=== PATIENT | male | born 1960 | race Caucasian/White ===

== ENCOUNTER 2022-05-05 14:49 | Outpatient (CLI) | payer BC, SELFPAY ==
[2022-05-05 22:11] LABS: Albumin* 4.6 g/dL (3.3-5.0); Chloride* 102 mmol/L (96-114); Sodium* 137 mmol/L (135-149)
[2022-05-05 22:13] LABS: Creatinine* 0.8 mg/dL (0.5-1.5); Estimated Glomerular Filt Rate 101 ml/min
[2022-05-05 22:14] LABS: Alanine Aminotransferase* 55 U/L (4-50); Alkaline Phosphatase* 68 U/L (40-150); Aspartate Amino Transferase* 41 U/L (12-35); Bilirubin Total* 0.5 mg/dL (0.1-1.5); Blood Urea Nitrogen* 10 mg/dL (7-30); Carbon Dioxide* 29 mmol/L (20-32); Glucose* 94 mg/dL (60-115); Total Protein* 7.7 g/dL (6.0-8.3)
[2022-05-05 22:15] LABS: Calcium* 9.5 mg/dL (8.4-10.6)
[2022-05-05 22:18] LABS: Cholesterol* 168 mg/dL (90-199); HDL Cholesterol* 48 mg/dL (>=40); LDL Cholesterol Calculated 99 mg/dL (<100); Triglycerides* 105 mg/dL (40-149)
[2022-05-05 22:32] LABS: Vitamin D 25 Hydroxy* 34 ng/mL (30-80)
[2022-05-05 23:03] LABS: Hepatitis C Virus Antibody* Negative (Negative)
== END 2022-05-05 14:50 | disposition home or self-care (01) ==
PROVIDERS: PCP Family Medicine; Visit Provider Family Medicine
DX: I10 Essential (primary) hypertension (principal); G35 Multiple sclerosis; Z79.899 Other long term (current) drug therapy; Z11.59 Encounter for screening for other viral diseases; Z12.5 Encounter for screening for malignant neoplasm of prostate
CPT/HCPCS: 80053; 80061; 82306; 84153; 85027; 86803

== ENCOUNTER 2022-06-14 10:49 | Outpatient (CLI) | payer BC, SELFPAY ==
--- NOTE | 2022-06-14 11:00 | CRLHL7_ITS ---
For Patients: As a result of the Century Cures Act, medical imaging exams and procedure reports are released immediately into your electronic medical record. You may view this report before your referring provider. If you have questions, please contact your health care provider. INDICATION: Lung cancer screening. History of smoking. High risk patient with greater than 40 pack-year smoking history. TECHNIQUE: Low-dose lung cancer screening non-contrast CT chest. Dose reduction techniques were used. COMPARISON: None. FINDINGS: NODULES: 4 millimeter nodule adjacent to the fissure left upper lobe, . Numerous small nodules are present throughout the left lower lobe measuring up to 4 millimeters. Several 4 millimeter or less pulmonary nodules are also present within the right middle lobe. Numerous nodular densities within the right lower lobe are present, measuring up to 7.7 millimeters, series 3, image 90. LUNGS AND PLEURA: Biapical pleural parenchymal scarring. Paraseptal and centrilobular emphysema. MEDIASTINUM: No adenopathy. CORONARY ARTERY CALCIFICATION: Moderately severe. LIMITED UPPER ABDOMEN: Normal. MUSCULOSKELETAL: Chronic left medial clavicular fracture. Old right 11th rib fracture. IMPRESSION: Numerous bilateral pulmonary nodules measuring up to 7.7 millimeters. LUNG-RADS CATEGORY: 3: Probably benign. RADIOLOGIST RECOMMENDATION: Low-dose CT chest in 6 months. Please note that all CT scans at this facility use dose modulation, iterative reconstruction, and/or weight-based dosing when appropriate to reduce radiation dose to as low as reasonably achievable. Dictated by Dheeraj Mensah MD @ 06/14/2022 12:45:40 PM (Electronically Signed)
== END 2022-06-14 10:50 | disposition home or self-care (01) ==
LOC: CT 10:50
PROVIDERS: PCP Family Medicine; Visit Provider Family Medicine
DX: Z12.2 Encounter for screening for malignant neoplasm of respiratory organs (principal); R91.8 Other nonspecific abnormal finding of lung field
CPT/HCPCS: 71271

== ENCOUNTER 2022-12-13 12:49 | Outpatient (CLI) | payer BC, SELFPAY ==
--- NOTE | 2022-12-13 13:00 | CRLHL7_ITS ---
For Patients: As a result of the Century Cures Act, medical imaging exams and procedure reports are released immediately into your electronic medical record. You may view this report before your referring provider. If you have questions, please contact your health care provider. INDICATION: Lung cancer screening. History of smoking. High risk patient with greater than 40 pack-year smoking history. Tiny nodules were described on a prior CT June 14, 2022. TECHNIQUE: Low-dose lung cancer screening non-contrast CT chest. Dose reduction techniques were used. COMPARISON: June 24, 2022. FINDINGS: NODULES: 6 mm pulmonary nodule right lower lobe laterally previously 7 mm. Stable benign darryl fissural nodule left upper lobe, image 50 series 3 measuring up to 4 mm. One or 2 very tiny micro nodules left lower lobe smaller and less numerous than before. No new nodules. LUNGS AND PLEURA: Emphysematous type change. Minor basilar fibrosis. Minor apical fibrosis. MEDIASTINUM: Normal. CORONARY ARTERY CALCIFICATION: Present. LIMITED UPPER ABDOMEN: No splenomegaly. Normal adrenal glands. MUSCULOSKELETAL: Left clavicular fracture. IMPRESSION: Negative for lung cancer screening purposes. LUNG-RADS CATEGORY: 2: Benign. RADIOLOGIST RECOMMENDATION: Continue annual screening with low-dose CT chest in 12 months. Please note that all CT scans at this facility use dose modulation, iterative reconstruction, and/or weight-based dosing when appropriate to reduce radiation dose to as low as reasonably achievable. Dictated by Deandre Montalvo MD @ 12/13/2022 7:22:51 PM (Electronically Signed)
== END 2022-12-13 12:50 | disposition home or self-care (01) ==
LOC: CT 12:49
PROVIDERS: PCP Family Medicine; Visit Provider Family Medicine
DX: R91.8 Other nonspecific abnormal finding of lung field (principal); Z12.2 Encounter for screening for malignant neoplasm of respiratory organs
CPT/HCPCS: 71250

== ENCOUNTER 2023-03-12 13:41 | Outpatient (CLI) | payer BC, SELFPAY | END 2023-03-12 13:42 | disposition home or self-care (01) | LOC: US 13:41 | PROVIDERS: PCP Family Medicine; Visit Provider Family Medicine | DX: M79.662 Pain in left lower leg (principal); R20.0 Anesthesia of skin | CPT/HCPCS: 93924 ==

== ENCOUNTER 2023-08-13 07:32 | Outpatient (CLI) | payer BC, SELFPAY | END 2023-08-13 07:33 | disposition home or self-care (01) | PROVIDERS: PCP Family Medicine; Visit Provider Family Medicine | DX: E78.5 Hyperlipidemia, unspecified (principal); I10 Essential (primary) hypertension | CPT/HCPCS: 80053; 80061; 82043; 82570 ==

== ENCOUNTER 2023-08-30 09:52 | Outpatient (CLI) | payer BC, SELFPAY | END 2023-08-30 09:53 | disposition home or self-care (01) | LOC: NFLDREF 08-31 08:31 | PROVIDERS: PCP Family Medicine; Referring Provider Family Medicine; Visit Provider Family Medicine | DX: E87.1 Hypo-osmolality and hyponatremia (principal) | CPT/HCPCS: 80048 ==

== ENCOUNTER 2024-04-17 13:49 | Outpatient (CLI) | payer BC, SELFPAY ==
--- NOTE | 2024-04-17 14:00 | CRLHL7_ITS ---
For Patients: As a result of the Century Cures Act, medical imaging exams and procedure reports are released immediately into your electronic medical record. You may view this report before your referring provider. If you have questions, please contact your health care provider. DXA BONE MINERAL DENSITY STUDY Reason for exam: Osteopenia. Current height (in): 71. Weight (lb): 195. Menopause age: N/A. Ethnicity: White. 1. Have you had a previous hip or vertebral fracture? No. 2. Have you had any fractures during your adult life which did not result from significant trauma (e.g., auto accident)? No. 3. Did either of your parents have a hip fracture? No. 4. Do you smoke? No. 5. Have you ever taken Glucocorticoids? No. 6. Do you have rheumatoid arthritis? No. 7. Do you have secondary osteoporosis? No. 8. Do you drink 3 or more alcoholic drinks per day? Yes. 9. Are you being treated for osteoporosis? No. 10. Have you ever taken any of the following medications: Actonel, Evista, Fosamax, Miacalcin, Reclast, Boniva, Forteo, HRT (i.e., estrogen/hormone therapy), Protelos, Prolia, Vitamin D, Calcium, other ??? please specify. ANSWER: Yes, vitamin D. 11. Do you have any of the following medical conditions: Anorexia or bulimia, asthma or emphysema, end stage renal disease, hyperparathyroidism, any seizure disorders, cancer, inflammatory bowel diseases, hysterectomy, other ??? please specify. ANSWER: No. 12. What was your maximum height (inches)? 72. 13. Do you perform weight bearing exercise regularly? No. 14. Do you regularly consume dairy products? No. 15. Do you drink caffeinated beverages? Yes. TECHNIQUE: Bone mineral density study was performed using the [employer] Wi. FINDINGS: The results of the study expressed as bone mineral density (BMD) are as follows: Lumbar spine L1 to L4: BMD: 0.914 g/cm2. T-score: -1.6. Z-score: -0.9 Neck Left: BMD: 0.678 g/cm2. T-score: -1.9. Z-score: -0.9 Right: BMD: 0.655 g/cm2. T-score: -2.0. Z-score: -1.0 Total Left: BMD: 0.820 g/cm2. T-score: -1.4. Z-score: -0.9 Right: BMD: 0.837 g/cm2. T-score: -1.3. Z-score: -0.8 IMPRESSION: Osteopenia. *Comparison exams done prior to 10/2019 were performed on different unit, [place]en.. FRAX 10-year Fracture Risk Major Osteoporotic Fracture: 9.1% Hip Fracture: 2.1% Reported Risk Factors: [place] () Neck BMD=0.655, BMI=27.2, alcohol use. Dheeraj Mensah M.D. Diagnostic Radiologist [email or web address] CARROL/ana laura du/Dictated by: Dheeraj Mensah MD @ 04/18/2024 8:44:00 AM (Electronically Signed)
== END 2024-04-17 13:50 | disposition home or self-care (01) ==
LOC: RAD 13:50
PROVIDERS: PCP Family Medicine; Visit Provider Family Medicine
DX: M85.80 Other specified disorders of bone density and structure, unspecified site (principal); M85.89 Other specified disorders of bone density and structure, multiple sites
CPT/HCPCS: 77080

== ENCOUNTER 2024-10-27 07:51 | Outpatient (CLI) | payer BC, SELFPAY | END 2024-10-27 07:52 | disposition home or self-care (01) | LOC: NFLDREF 18:56 | PROVIDERS: PCP Family Medicine; Referring Provider Family Medicine; Visit Provider Family Medicine | DX: Z00.00 Encounter for general adult medical examination without abnormal findings (principal); E78.5 Hyperlipidemia, unspecified; I10 Essential (primary) hypertension; Z12.5 Encounter for screening for malignant neoplasm of prostate; Z13.21 Encounter for screening for nutritional disorder | CPT/HCPCS: 80053; 80061; 82306; G0103 ==

== ENCOUNTER 2024-10-30 10:12 | Outpatient (CLI) | payer BC, SELFPAY | END 2024-10-30 10:13 | disposition home or self-care (01) | LOC: FRMREF 10:12 | PROVIDERS: PCP Family Medicine; Visit Provider Family Medicine | DX: I10 Essential (primary) hypertension (principal); E87.1 Hypo-osmolality and hyponatremia; E78.5 Hyperlipidemia, unspecified | CPT/HCPCS: 82043; 82570 ==

== ENCOUNTER 2024-11-13 13:43 | Outpatient (CLI) | payer BC, SELFPAY ==
--- OUTSIDE RECORDS SUMMARY | 2022-06-22 05:01 | XMS_ITS | Continuity of Care Document ---
Author Organization [facility] Address [address] [address] [place] [address] Phone Care Team Providers Care Messenger Copy Name Role Phone Unavailable Unavailable Unavailable Allergies, Adverse Reactions, Alerts Substance Reaction Status Criticality hydrochlorothiazide HivesHives Active No Infor mation Medications Medication Instructions Dosage Effective Dates (start - stop) Status Comments albuterol sulfate HFA 90 mcg/actuation aerosol inhaler inhale 1 puff by INHALATION route every day as needed 1 puff - Active atorvastatin 20 mg tablet take 1 tablet by oral route every day 20 MG - Active cholecalciferol (vitamin D3) 50 mcg (2,000 unit) capsule take 1 by Oral route every day 1 - Active Prozac 10 mg capsule take 1 Capsule by oral route every day 10 MG - Active Advair HFA 45 mcg-21 mcg/actuation aerosol inhaler inhale 2 puff by inhalation route 2 times every day in the morning and evening 2.00 puff - Active fluticasone propionate 50 mcg/actuation nasal spray,suspension spray 2 spray by Intranasal route every day in each nostril 2 spray - Active lisinopril 30 mg tablet take 1 tablet by oral route every day 30 MG - Active tadalafil 20 mg tablet take 1 tablet by oral route every day 20 MG - Active Procedures Procedure Date Colonoscopy Flex; W/remov Les- 23 Colonoscopy Flex; W/bx 1/mx Level Iv-surg Path Gross/micro Advance Directives Directive Yes / No Effective Date File Name No Information Encounters Encounter Description Practice Location Reason(s) For Visit Diagnoses Date Provider Providers Copied on Encounter [facility], [address] [address], [place], [place], [id number], [place] tel:[phone] [facility] No Information 3 No Information Referring Provider: Stanley Metz MD, [address] [facility] [address], [place], [address] . tel:[phone] [facility], [address] [address], [place], [place], [id number], [place] tel:[phone] [facility] GI Symptoms or Concerns (chief complaint) Colorectal polypsDiverticul osis of colonEncounter for screening for malignant neoplasm of colonBenign neoplasm of transverse colonBenign neoplasm of cecumBenign neoplasm of ascending colonBenign neoplasm of ascending colonBenign neoplasm of cecum 3 Isaías Angel. [address] [facility] [place] [address], [place], [place], [id number], [place]. tel:[phone] [facility], [address] [address], [place], [place], [id number], [place] tel:[phone] [facility] No Information 2 Wes Arevalo. [address] [facility], [facility] [address], [place], [place], [id number], [place]. tel:[phone] Family History Family Member Type Diagnosis Age At Onset No Information Immunizations Vaccine Date Status Comments Influenza administered Note: [facility] bi-d irectional interface ; Source: Other Registry SARS-COV-2 (COVID-19) vaccin e, mRNA, spike protein, LNP, bivalent booster, preservative free, 30 mcg/0.3 mL dose, salvador-sucrose formulation administered Note: [facility] bi-d irectional interface ; Source: Other Registry SARS-COV-2 (COVID-19) vaccin e, mRNA, spike protein, LNP, preservative free, 30 mcg/0.3mL dose, salvador-sucrose formulation administered Note: [facility] C bi- directional interface ; Source: Other Registry Seasonal, quadrivalent, recombinant, injectable influenza vaccine, preservative free administered Note: [facility] bi-direct ional interface ; Source: Other Registry SARS-COV-2 (COVID-19) vaccin e, mRNA, spike protein, LNP, preservative free, 30 mcg/0.3mL dose administered Note: [facility] bi-direct ional interface ; Source: Other Registry SARS-COV-2 (COVID-19) vaccin e, mRNA, spike protein, LNP, preservative free, 30 mcg/0.3mL dose administered Note: [facility] bi-direct ional interface ; Source: Other Registry SARS-COV-2 (COVID-19) vaccin e, mRNA, spike protein, LNP, preservative free, 30 mcg/0.3mL dose administered Note: [facility] bi-direct ional interface ; Source: Other Registry Afluria Qd administered Note: [facility] bi-directional interface ; Source: Other Registry zoster vaccine recombinant administered N ote: [facility] bi-directional interface ; Source: Other Registry Influenza administered Note: [facility] bi-d irectional interface ; Source: Other Registry zoster vaccine recombinant administered N ote: [facility] bi-directional interface ; Source: Other Registry measles, mumps and rubella v irus vaccine administered Note: [facility] bi-direct ional interface ; Source: Other Registry Afluria Qd administered Note: [facility] bi-directional interface ; Source: Other Registry tetanus toxoid, reduced diphtheria toxoid, and acellular pertussis vaccine, adsorbed administered Note: [facility] b i-directional interface ; Source: Other Registry tetanus and diphtheria toxoi ds, adsorbed, preservative free, for adult use (5 Lf of tetanus toxoid and 2 Lf of diphtheria toxoid) administered Note: [facility] bi-direct ional interface ; Source: Other Registry Payers Payer name Insurance type Covered democrat ID Authorleandro nazario(s) [employer] [id number] Social History Type Description Quantity Date Captured Comments Sex Male Smoking Status No Information Chief Complaint And Reason For Visit No Information Reason For Referral Reason For Referral No Information History Of Present Illness Encounter Date Complaint History Of Prese nt Illness GI Symptoms or Concerns Functional Status Date Functional Assessmen t No Information Instructions Date Instruction Additional Infor mation Colon Cancer Prevention Related to Colorectal polyps Diverticulosis/Diverticulitis Re lated to Colorectal polyps Colon Polyps Related to Color ectal polyps Assessments Type Assessment Date No Information Patient Care Teams Name Effective Dates (start - stop) Status Members No Information
--- NOTE | 2024-11-13 14:00 | CRLHL7_ITS ---
For Patients: As a result of the Cures Act, medical imaging exams and procedure reports are released immediately into your electronic medical record. You may view this report before your referring provider. If you have questions, please contact your health care provider. INDICATION: Lung cancer screening. TECHNIQUE: Low-dose lung cancer screening non-contrast CT chest. Dose reduction techniques were used. COMPARISON: CT 12/13/2022 FINDINGS: NODULES: Scattered nodules appear unchanged measuring up to 6 millimeters in the right lower lobe. There are peripheral centrilobular small nodules probably infectious/inflammatory. LUNGS AND PLEURA: Emphysema. MEDIASTINUM: Normal. CORONARY ARTERY CALCIFICATION: Present. LIMITED UPPER ABDOMEN: Normal. MUSCULOSKELETAL: Unremarkable. Old left clavicular fracture. IMPRESSION: 1. Scattered pulmonary nodules measuring up to 6 millimeters unchanged. 2. Peripheral small centrilobular nodules also probably infectious/inflammatory. LUNG-RADS CATEGORY: 2: Benign. RADIOLOGIST RECOMMENDATION: Continue annual screening with low-dose CT chest in 12 months. Please note that all CT scans at this facility use dose modulation, iterative reconstruction, and/or weight-based dosing when appropriate to reduce radiation dose to as low as reasonably achievable. Dictated by Meredith Joseph MD @ 11/16/2024 10:20:49 AM (Electronically Signed)
--- OUTSIDE RECORDS SUMMARY | 2024-11-14 00:34 | XMS_ITS | Clinical Summary ---
Author Organization [facility] Address [address] [place] [address] Care Team Providers Care Manager Financial Planning Name Role Phone Unavailable Primary Care Provider Unavailabl e Source Comments Patient records contain information from all sites at [facility]. For routine questions regarding patient records, call [phone] during business hours, M-F 8:00 AM - 5:00 PM Central Time. Record requests for emergency care only can be directed to [phone] at any time.[facility] Allergies Active Allergy Reactions Criticality Noted Date Comments Triamterene-Hydrochlorothiazid Rash 04/09 Medications cholecalcifero l (VITAMIN D3) 50 mcg (2,000 Unit) capsule 8 Active atorvastatin (LIPITOR) 40 mg tablet 3 Active FLUoxetine (PROzac) 20 mg capsule Take 20 mg by mouth every day* 3 Active lisinopriL (PRINIVIL,ZEST RIL) 30 mg tablet TAKE 1 TABLET (30MG) BY MOUTH EVERY DAY* 3 Active pu-tvi-lxchy-K 6-scignsv-meve in (Centrum Silver Men) [phone] mcg tablet 0 Active Nicotrol 10 mg inhaler 1 inhaler inhaled every 2-4 hours As Needed for nicotine cravings* 3 Active tadalafiL (CIALIS) 20 mg tablet 20 mg orally every day As Needed for sexual activity; administer approximately 30min before sexual activity; do not use more than 1 dose per 24hrs* 3 Active aspirin 81 mg chewable tablet Chew 81 mg daily. Ac tive tamsulosin (FLOMAX) 0.4 mg 24 hr capsule Take 0.4 mg by mouth daily. Active FLUoxetine (PROzac) 40 mg capsule Take 40 mg by mouth daily. 5 Active Active Problems No known active problems Encounters Date Type Department Care Team Description 09/16/2024 11:30 AM CDT Office Visit Division of Vascular and Endovascular Surgery in [place], [place] [address] [place] [phone] Nagi Huffman M.D. 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 Peripheral Arterial Disease; Atherosclerosis Arteriosclerosis Obliterans Lower Extremity Discharge Disposition: Home or Self Care 09/10/2024 4:15 PM CDT Clinical Communication Virtual Review in [place], [place] [address] [place] [address] Pre-visit Intake from Last 3 Months Social History Tobacco Use Types Packs/Day Years Used Date Smoking Tobacco: Former Cigarettes 0 12/26/1974 - 02/25/2017 Passive Smoke Exposure: Past Smokeless Tobacco: Never Tobacco Cessation:Counseling Given: Not Answered Alcohol Use Standard Drinks/Week Comments Yes 20 (1 standard drink = 0.6 oz pu re alcohol) [facility] Utilities Answer Date Recorded In the past 12 months has [employer], [employer], or water [employer] threatened to shut off services in your home? No 09/12/2024 Overall Financial Resource Strain (CARDIA) Answe r Date Recorded How hard is it for you to pa y for the very basics like food, housing, medical care, and heating? Not hard at all 04/06/2023 Exercise Vital Sign Answer Date Recorde d On average, how many days pe r week do you engage in moderate to strenuous exercise (like a brisk walk)? 1 day 09/12/2024 On average, how many minutes do you engage in exercise at this level? 30 min 09/12/2024 Hunger Vital Sign Answer Date Recorded Within the past 12 months, y ou worried that your food would run out before you got the money to buy more. Never true 09/13/19 25 Within the past 12 months, t he food you bought just didn't last and you didn't have money to get more. Never true 09/12/2024 PRAPARE - Transportation Answer Date Re corded In the past 12 months, has l ack of transportation kept you from medical appointments or from getting medications? No 08/26 In the past 12 months, has l ack of transportation kept you from meetings, work, or from getting things needed for daily living? No 09/12/2024 Nutrition Answer Date Recorded On average, how many serving s of fruits and vegetables do you eat per day (serving size is equal to 1 cup or approximately the size of a tennis ball)? 3-5 09/12/2024 Dental Answer Date Recorded Dental: Regular Dentist Yes 04/06/20 Employment Answer Date Recorded Employment status Retired 09/12/2024 Housing Stability Answer Date Recorded What is your living situation today? I have a [facility] place to live 09/12/2024 Sex and Gender Information Value Date Recorded Sex Assigned at Male 04/07/2023 1:25 PM EVS TECH Legal Sex Male 9:07 PM EVS TECH Gender Identity Male 04/07/2023 1:25 PM EVS TECH Sexual Orientation Straight 04/07/2023 1: 25 PM EVS TECH Last Filed Vital Signs Vital Sign Reading Time Taken Comments Blood Pressure 124/78 09/16/2024 11:20 AM CDT Pulse 73 09/16/2024 11:20 AM CDT Temperature 36.5 C (97.7 F) 08/27/2023 1:22 PM CDT Respiratory Rate 14 08/27/2023 3:00 PM CDT Oxygen Saturation 99% 08/27/2023 3:00 PM CDT Inhaled Oxygen Concentration - - Weight 89.6 kg (197 lb 8.5 oz) 09/16/2024 11:15 AM CDT Height 180 cm (5' 10.87) 09/16/2024 11:15 AM CD T Body Mass Index 27.65 09/16/2024 11:15 AM CDT Plan of Treatment Health Maintenance Due Date Last Done Comments CT Colonography 1961 Cologuard 1961 Colonoscopy 1961 Colorectal Cancer Screening 1961 FIT 1961 Fasting Glucose for Diabetes Screening 1961 Hepatitis C Screening 1961 Lipid (Cholesterol) Screening 1961 Potassium Level 1961 Sodium Level 1961 Pneumococcal vaccine (50+ years) (1 of 1 - PCV) 12/29/2011 Creatinine Level (Kidney Function Test) 04/11/2024 04/11/2023 Depression Screening (Annual PHQ-2) 05/28/2024 DTaP,Tdap,and Td Vaccines (3 - Td or Tdap) 08/12/2033 08/13/2023, 09/07/2014, 08/29/2004 Zoster Vaccines Completed 06/03/2019, 03/07/2019 COVID-19 Vaccine Completed 03/14/2024, , 03/05/2022, Additional history exists Influenza Vaccine Completed 03/14/2024, , 03/05/2022, Additional history exists IPV Vaccines Aged Out No longer eligi ble based on patient's age to complete this topic Medical Devices Implanted Type Area Training Specialist Device Identifier Shelf Expiration Date Model / Serial / Lot Misc Other Misc Other N/A: Mouth Description:Dental snap on- lower dentures- placed 2019 [employer] 018 [id number] - [id number] - [id number] Implanted:Qty : 1 on 06/13/2023 by Nagi Huffman M.D. at [facility] [employer] [place] 02/03/2026 [id number] / [id number] / Stnt Vbx Lg Bln [id number] - [id number] - [id number] Implanted:Qty : 1 on 06/13/2023 by Nagi Huffman M.D. at [facility] [employer] [place] 02/16/2026 [id number] / [id number] / Stnt Vbx Lg Bln [id number] - [id number] - [id number] Implanted:Qty : 1 on 06/13/2023 by Nagi Huffman M.D. at [facility] [employer] [place] 11/03/2025 [id number] / [id number] / Stnt Vbx Lg Bln [id number] - [id number] - [id number] Implanted:Qty : 1 on 06/13/2023 by Nagi Huffman M.D. at [facility] [employer] [place] 01/28/2026 [id number] / [id number] / Stnt Elv De Otw [id number] - [id number] Implanted:Qty : 1 on 08/27/2023 by Nagi Huffman M.D. at [facility] [employer] 01/04/2025 [id number] / [id number] Procedures Procedure Name Priority Date/Time Associated Diagnosis Comments LOWER EXTREMITY ARTERIAL (RICHARD) - EXERCISE (CLAUDICATION) Routine 09/16/2024 10:17 AM CDT Peripheral Arterial Disease Atherosclerosis Arteriosclerosis Obliterans Lower Extremity CREATININE WITH EGFR, S/P Routine 04/11/2023 10:42 AM EVS TECH Hypertension Essential Primary from Last 3 Months or Most Recently Relevant to Health Maintenance Results * Lower Extremity Arterial (RICHARD) - Exercise (Claudication) (09/16/2024 10:17 AM CDT) Anatomical Region Laterality Modality Other 09/16/2024 8:51 AM CDT Narrative 09/16/2024 10:36 AM CDT Right: Doppler Waveforms: Abnormal signals starting at or above the superficial femoral level. Resting Index: RICHARD (PT)- 0.70 RICHARD (DP)- 0.59 TBI- 0.46 Post-exercise RICHARD: 0.29 Post-Exercise CF Doppler: Abnormal. Left: Doppler Waveforms: Normal at all levels evaluated. Resting Index: RICHARD (PT)- 0.90 RICHARD (DP)- 0.84 TBI- 0.70 Post-exercise RICHARD: 0.41 Post-Exercise CF Doppler: Abnormal. General: Patient exercised at speed of 2.0 mph (10% grade) for 3'24 (189 yards). Standard protocol: 2.0 mph (10% grade) for 5 minutes (283 yards). Onset of symptoms at 1'45 (93 yards). Exercise terminated due to lower extremity symptoms. Conclusions: Right- moderate aortoiliac obstruction. Left- mild-moderate aortoiliac obstruction. EKG- negative for cardiac ischemia with exercise. Left-sided disease severity may have worsened slightly since the study of 09/11/2023. Procedure Note Eric Norris M.D. - 09/16/2024 Right: Doppler Waveforms: Abnormal signals starting at or above thesuperficial femoral level. Resting Index: RICHARD (PT)- 0.70 RICHARD(DP)- 0.59 TBI- 0.46 Post- exercise RICHARD: 0.29 Post-ExerciseCF Doppler: Abnormal. Left: Doppler Waveforms: Normal at all levels evaluated. RestingIndex: RICHARD (PT)- 0.90 RICHARD (DP)- 0.84 TBI- 0.70Post-exercise RICHARD: 0.41 Post-Exercise CF Doppler: Abnormal. General: Patient exercised at speed of 2.0 mph (10% grade) for 3'24 (189yards). Standard protocol: 2.0 mph (10% grade) for 5 minutes (283yards). Onset of symptoms at 1'45 (93 yards). Exercise terminated dueto lower extremity symptoms. Conclusions: Right- moderate aortoiliac obstruction. Left- mild- moderateaortoiliac obstruction. EKG- negative for cardiac ischemia with exercise.Left-sided disease severity may have worsened slightly since the study of09/11/2023. us Nagi Huffman M.D. CV VASCULAR PROCEDURES Fi nal Result * Creatinine with Estimated GFR (04/11/2023 10:42 AM EVS TECH) Creatinine 0.80 0.74 - 1.35 mg/dL 04/11/2023 12:34 PM EVS TECH DTL Estimated GFR (eGFR) >90 >=60 mL/min/BSA 04/11/2023 12:34 PM EVS TECH DTL Comment: Estimated GFR calculated using the 2020 CKD_EPI creatinine equation. Blood (Blood, Venous) 04/11/2023 10:42 AM EVS TECH 04/11/2023 11:36 AM EVS TECH Mario Reeves M.D. LAB BLOOD ADD-ON Final R esult [facility] [place] [address] [place] [address], [place] DTL [facility] [address] [place] [address] from Last 3 Months or Most Recently Relevant to Health Maintenance Insurance [facility]
--- OUTSIDE RECORDS SUMMARY | 2024-11-14 00:34 | XMS_ITS | Continuity of Care Document ---
Author Organization [facility] Address [address] [place] [id number] Care Team Providers Care Slab Worker Name Role Phone JEREMY YUEN Primary Care Provider Assessment No assessment recorded. Plan of Treatment Reminders Order Date Submit Date Provider Last Modified By Organization Details Last Modified Time Details Appointments None record ed. Lab None record ed. Referral None record ed. Procedures None record ed. Surgeries None record ed. Imaging None record ed. Medication Orders None record ed. Patient TargetsNo targets recorded. Patient Instructions Encounter Date Encounter Id Patient Instructions Last Modified By Organization Details Last Modified Time 11/11/2024 [id number] I had a long discussion with Mr. Fournier regarding the natural history and potential etiologies of hemospermia. We discussed that in many cases this is a benign process which will resolve with conservative measures. We did discuss that there is some data to suggest that men with hemospermia may harbor an underlying prostate cancer and that these men should undergo evaluation with examination and prostate cancer specific antigen (PSA) testing. (Saulo M, Emilee RE, Asif JA, et al. Association of Hemospermia with Prostate Cancer. Journal of Urology 2004;172(6 Pt. 1):2189 92. PMID: [id number]) We then discussed that if this becomes a persistent issue, further evaluation with either transrectal ultrasonography or MRI of the prostate would be recommended. [email or web address] Not available 11/11/2024 14:42:25 Reason for Referral None Reported. Procedures Surgical History Date Name Laterality Status Provider Name and Address Organization Details Recorded Time 06/11/19 23 Diagnostic colonoscopy completed Not Available Health Note 11/07/2024 15:05:27 Imaging Results None recorded. Procedure Notes None recorded. Medical Equipment None Reported. Allergies No known drug allergies Medications Name Sig Start Date Stop Date Status Note LastModified by Organization Details LastModified Time fluoxetine 40 mg capsule Take 1 capsule (40 mg) orally every morning* active Not Available Not Available No t Available atorvastatin 40 mg tablet 40mg 1/day active Not Available Not Available No t Available buspirone 5 mg tablet Take One 5 mg tablet by mouth three times a day.* active Not Available Not Available No t Available propranolol 10 mg tablet Take 1 tablet (10 mg) orally three times a day As Needed for anxiety* active Not Available Not Available No t Available tamsulosin 0.4 mg capsule 0.4mg 1/day active Not Available Not Available No t Available cephalexin 500 mg capsule TAKE ONE CAPSULE BY MOUTH THREE TIMES DAILY FOR 5 DAYS* 11/07 completed Not Available Not Available Not Available lisinopril 30 mg tablet TAKE ONE TABLET BY MOUTH ONE TIME DAILY* active Not Available Not Available No t Available hydroxyzine HCl 10 mg tablet Take One tablet (10 mg) by mouth three times a day As Needed for anxiety* active Not Available Not Available No t Available fluoxetine 20 mg capsule 20mg 1/day active Not Available Not Available No t Available tadalafil 20 mg tablet 20 mg As needed active Not Available Not Available No t Available aspirin 81mg 1/day active Not Available Not Available No t Available lisinopril 30mg 1/day active Not Available Not Available No t Available Centrum Silver CENTRUM SILVER 1/day active Not Available Not Available No t Available Vitamin D3 50mcg 1/day active Not Available Not Available No t Available Vitals Date Recorded Body mass index (BMI) Body weight Body height Provider Name and Address Organization Details Last Updated DateTime 11/11/2024 26.8 kg/m2 72454.51 g 181.61 cm [facility] 11/11/2024 14:20:47 Social History Question Answer Notes LastModified by Organizat ion Details LastModified Time Tobacco Smoking Status Former Smoker Not Available Health Note 11/07/2024 15:05:28 Do You Have An Advance Directive? No [email or web address] Information not available 11/07/2024 What Is Your Level Of Caffeine Consumption? Moderate [email or web address] Information not available 11/07/2024 How Much Tobacco Do You Chew? None [email or web address] Information not available 11/07/2024 When Did You Quit Smoking? 6-10yearssinc elastcigarett e Information not available 11/11/2024 Do You Have A Medical Power Of Body Builder? No [email or web address] Information not available 11/07/2024 What Was The Date Of Your Most Recent Tobacco Screening? 11/11/2024 [email or web address] Information not available 11/07/2024 What Is Your Relationship Status? [email or web address] Information not available 11/07/2024 Are You Sexually Active? No [email or web address] Information not available 11/07/2024 Has Tobacco Cessation Counseling Been Provided? Yes Information not available 11/11/2024 On What Date Was Tobacco Cessation Counseling Provided? 11/11/2024 Information not available 11/11/2024 How Many Years Have You Smoked Tobacco? 45 [email or web address] Information not available 11/07/2024 How Many Days In The Past Year Have You Consumed 5 Or More Drinks? 0 [email or web address] Information no t available 11/07/2024 Sex: Unknown Functional Status Question Answer Note LastModified by Organizat ion Details LastModified Time Do you use any illicit or recreational drugs? No [email or web address] Information not available 11/07/2024 Do you or have you ever used any other forms of tobacco or nicotine? Yes Information not available 11/11/2024 What is your level of alcohol consumption? Moderate [email or web address] Information not available 11/07/2024 Do you or have you ever used smokeless tobacco? Never used smokeless tobacco [email or web address] Information not available 11/07/2024 Do you or have you ever used e-cigarettes or vape? Current user of electronic cigarettes [email or web address] Information not available 11/07/2024 Mental Status None recorded. Family History Relationship Description Onset Age of this Age Resolved Age Notes LastModified by Organization Details LastModified Time Unspecified Relation Family history unknown [email or web address] Not available 2024 15:05:26 Medical History Condition Response High Blood Pressure N Kidney Stones N Depression Y Lung Disease Y GERD/Acid Reflux N Sexually Transmitted Infection N Cancer N High Cholesterol N Diabetes N Bleeding Disorder N Heart Disease N Immunizations Vaccine Type Date Status Note Provider Nam e and Address Organization Details Recorded Time zoster live completed Not Available Health Note 11/07/2024 15:05:30 influenza, unspecified formulation 4 completed Not Available Health Note 11/07/2024 15:05:30 SARS-COV-2 (COVID-19) vaccine, UNSPECIFIED 4 completed Not Available Health Note 11/07/2024 15:05:30 Td (adult), 5 Lf tetanus toxoid, preservative free, adsorbed 5 completed Not Available [facility] 11/11/2024 14:18:01 Tdap 5 completed Not Available [facility] 11/11/2024 14:18:01 Influenza, split virus, quadrivalent, PF 8 completed Not Available [facility] 11/11/2024 14:18:01 MMR 9 completed Not Available [facility] 11/11/2024 14:18:01 zoster recombinant 9 completed Not Available [facility] 11/11/2024 14:18:01 Influenza, split virus, quadrivalent, preservative 9 completed Not Available [facility] 11/11/2024 14:18:01 zoster recombinant 0 completed Not Available [facility] 11/11/2024 14:18:01 Influenza, split virus, quadrivalent, PF 0 completed Not Available [facility] 11/11/2024 14:18:01 COVID-19, mRNA, LNP-S, PF, 30 mcg/0.3 mL dose 1 completed Not Available [facility] 11/11/2024 14:18:01 COVID-19, mRNA, LNP-S, PF, 30 mcg/0.3 mL dose 1 completed Not Available [facility] 11/11/2024 14:18:01 COVID-19, mRNA, LNP-S, PF, 30 mcg/0.3 mL dose 1 completed Not Available [facility] 11/11/2024 14:18:01 Influenza, recombinant, quadrivalent, PF 1 completed Not Available [facility] 11/11/2024 14:18:01 COVID-19, mRNA, LNP-S, PF, 30 mcg/0.3 mL dose, salvador-sucrose 2 completed Not Available [facility] 11/11/2024 14:18:01 COVID-19, mRNA, LNP-S, bivalent, PF, 30 mcg/0.3 mL dose 2 completed Not Available [facility] 11/11/2024 14:18:01 Influenza, split virus, quadrivalent, preservative 2 completed Not Available [facility] 11/11/2024 14:18:01 RSV, recombinant, protein subunit RSVpreF, adjuvant reconstituted, 0.5 mL, PF 3 completed Not Available [facility] 11/11/2024 14:18:01 Influenza, split virus, quadrivalent, PF 3 completed Not Available [facility] 11/11/2024 14:18:01 COVID-19, mRNA, LNP-S, PF, salvador-sucrose, 30 mcg/0.3 mL 3 completed Not Available [facility] 11/11/2024 14:18:01 Td (adult), 2 Lf tetanus toxoid, preservative free, adsorbed 4 completed Not Available [facility] 11/11/2024 14:18:01 COVID-19, subunit, rS-nanoparticle, adjuvanted, PF, 5 mcg/0.5 mL 4 completed Not Available [facility] 11/11/2024 14:18:01 Influenza, split virus, trivalent, PF 4 completed Not Available [facility] 11/11/2024 14:18:01 Past Encounters Encounter ID Performer Location Encounter Start Date Encounter Closed Date Diagnosis/Indication Diagnosis SNOMED-CT Code Diagnosis ICD10 Code Diagnosis Note [id number] Leland Maya PA-C [facility] [address] [facility] e [address] [place] [phone] 11/11/2024 14:15:38 11/11/2024 14:45:22 Hemospermia 79556594 R36.1 Health Concerns Section Related Observation LastModified by Organization Detai ls LastModified Time None Recorded Concern Status LastModified by Organization Details LastModified Time None Recorded Payers Encounter Date Sequence Insurance Name Policy Number Policy James Covered Member ID James Member ID Guarantor Name 11/11/2024 1 [place] [id number] Estrella Fournier [id number] Dheeraj Fournier Notes Date Note Type Note Provider Name and Address Organization Details Recorded Time 11/11/2024 text/html 63-year-old male with history of PAD and MS here for evaluation of blood in semen - Initially noticed couple months ago. Happens infrequently. Usually dried up blood.-He denies any trauma-Has a history of BPH, currently on tamsulosin feels like symptoms have been stable-He denies any blood in the urine-He is currently not on any blood thinners. Most recent PSA with PCP was normalPatient was adopted-unaware of family history of prostate cancer Leland Maya PA-C [address] [facility],[address], [place], [address], [facility] [place] [facility] 11/11/2024 14:45:18
--- OUTSIDE RECORDS SUMMARY | 2024-11-14 00:35 | XMS_ITS | Clinical Summary ---
Author Organization [facility] Address [address] [place] [address] Care Team Providers Care Windows Application Developer Name Role Phone Tony Olea MD Primary Care Provider + Sandor Molina MD Unavailable [phone] Allergies Active Allergy Reactions Criticality Noted Date Comments Triamterene-Hydrochlorothiazid Rash 04/09 Medications metoprolol succinate, XL, (TOPROL XL) 50 mg oral extended release tablet 24 HR Take 50 mg by mouth once daily. 07/24/2021 Active PARoxetine (PAXIL) 20 mg oral tablet Take 20 mg by mouth once daily. 08/23/2021 Active Tadalafil 20 mg oral tablet TAKE 1 TABLET (20MG) BY MOUTH NEEDED 30 MIN TO 36 HOURS PRIOR TO INTERCOURSE. 09/02/2021 Active lisinopriL (PRINIVIL) 30 mg oral tablet TAKE 1 TABLET BY MOUTH EVERY DAY* Active atorvastatin (LIPITOR) 40 mg oral tablet Take 1 tablet (40mg) by mouth every day* 01/23/2024 Active aspirin 81 mg oral chewable tablet Chew 1 tablet (81 mg) Daily. Active tamsulosin (FLOMAX) 0.4 mg oral capsule TAKE 1 CAPSULE (0.4MG) BY MOUTH EVERY DAY AT BEDTIME* Active busPIRone (BUSPAR) 5 mg oral tablet Take One 5 mg tablet by mouth three times a day.* 06/28/2024 Active FLUoxetine (PROZAC) 40 mg oral capsule Take 1 capsule (40 mg) orally every morning* 07/05/2024 Active Active Problems Problem Noted Date Diagnosed Date Major depressive disorder, single episode, unspe cified 05/01/2019 Multiple sclerosis 05/01/2019 Encounters Date Type Department Care Team Description 09/25/2024 1:30 PM CDT Office Visit [facility] - [address] [place] [address] Zahra Wick, TRIALS MANAGER, REVENUE CYCLE ANALYST Severe carpal tunnel syndrome of right wrist (Primary Dx); Lumbar radiculopathy; Multiple sclerosis (HCC) from Last 3 Months Immunizations Immunization Administration Dates Next Due Influenza recombinant (FluBl ok Quadrivalent PF) 03/05/2021 Influenza split virus (Fluzo ne Quadrivalent PF) 02/19/2023,02/20/2020,03/12/2018 Influenza split virus quadrivalent 03/05/2022, MMR 01/06/2019 Pfizer 12+ Yrs Bivalent COVI D Vaccine (casillas cap) 03/05/2022 Pfizer 12+ Yrs Monovalent CO VID Vaccine (casillas cap) 01/01/2022 Pfizer 12+ Yrs Monovalent CO VID Vaccine (purple cap) 03/05/2021,09/03/2020,08/11/2020 Pfizer Comirnaty 12+ Yrs COV ID Vaccine Seasonal 03/13/2023 RSV Recombinant PF (Arexvy) 02/19/2023 Td adult absorbed PF (2 Lf) 08/13/2023 Tdap 09/07/2014 Zoster Recombinant 06/03/2019,03/07/2019 Social History Tobacco Use Types Packs/Day Years Used Date Smoking Tobacco: Former Smokeless Tobacco: Never Alcohol Use Standard Drinks/Week Comments Yes 0 (1 standard drink = 0.6 oz pur e alcohol) occasional Sex and Gender Information Value Date Recorded Sex Assigned at Not on file Legal Sex Male 7:25 PM CDT Gender Identity Not on file Sexual Orientation Not on file Last Filed Vital Signs Vital Sign Reading Time Taken Comments Blood Pressure - - Pulse - - Temperature - - Respiratory Rate 14 09/15/2021 1:40 PM CDT Oxygen Saturation - - Inhaled Oxygen Concentration - - Weight 97.5 kg (215 lb) 09/15/2021 1:40 PM CDT Height 182.9 cm (6') 09/15/2021 1:40 PM CDT Body Mass Index 29.16 09/15/2021 1:40 PM CDT Plan of Treatment Health Maintenance Due Date Last Done Comments Colonoscopy 1960 Hepatitis C Screening 1960 Anxiety Screening (ANNE-MARIE-2) 1961 Depression Follow-Up (PHQ-9) 1961 Pneumococcal 50+ Years (1 of 1 - PCV) 12/29/2011 Yearly Review of HCD 12/29/2011 Influenza Vaccine (Season Ended) 2025 02/19/2023, 03/05/2022, 03/05/2021, Additional history exists Adult Tetanus Booster 08/12/2033 08/13/2023 , 09/07/2014, 08/29/2004 Zoster Vaccine Completed 06/03/2019, 03/07/2019 RSV Vaccines Completed 02/19/2023 COVID-19 Vaccine Completed 03/14/2024, , 03/05/2022, Additional history exists Meningococcal B Vaccine Aged Out No l onger eligible based on patient's age to complete this topic Insurance BCBS OUT OF STATE COMMERCIAL Care Teams Windows Application Developer Relationship Specialty Start Date End Date Tnoy Olea MD [address] [place] [address] PCP - General 09/13/21 Sandor Molina MD [address] [facility] [address] [place] [address] Neurology 09/13/21
--- OUTSIDE RECORDS SUMMARY | 2024-11-14 00:35 | XMS_ITS | Data Portability ---
Author Organization [facility] Address [address] [facility] [address] [place] [address] Care Team Providers Care Radio Board Operator Announcer Name Role Phone JEREMY YUEN Primary Care [...] By Organization Details Last Modified Time 11/11/2024 [id number] I had a long discussion with Mr. [...] of Urology 2004;172(6 Pt. 1):2189 92. PMID: [id number]) We then discussed that if this becomes [...] Details Last Updated DateTime 11/11/2024 26.8 kg/m2 94300.51 g 181.61 cm [facility] 11/11/2024 14:20:47 Social History Question Answer [...] Do You Have A Medical Power Of Rn Document Improvement Specialist? No [email or web address] Information not available 11/07/2024 What [...] High Blood Pressure N Kidney Stones N Lung Disease Y Depression Y GERD/Acid Reflux N Sexually Transmitted Infection N Diabetes N Bleeding Disorder N Cancer N High Cholesterol N Heart Disease N Immunizations Vaccine Type [...] preservative free, adsorbed 5 completed Not Available [facility] 11/11/2024 14:18:01 Tdap 5 completed Not Available [facility] 11/11/2024 14:18:01 Influenza, split virus, quadrivalent, PF 8 completed Not Available [facility] 11/11/2024 14:18:01 MMR 9 completed Not Available [facility] 11/11/2024 14:18:01 zoster recombinant 9 completed Not Available [facility] 11/11/2024 14:18:01 Influenza, split virus, quadrivalent, preservative 9 completed Not Available [facility] 11/11/2024 14:18:01 zoster recombinant 0 completed Not Available [facility] 11/11/2024 14:18:01 Influenza, split virus, quadrivalent, PF 0 completed Not Available [facility] 11/11/2024 14:18:01 COVID-19, mRNA, LNP-S, PF, 30 mcg/0.3 mL dose 1 completed Not Available [facility] 11/11/2024 14:18:01 COVID-19, mRNA, LNP-S, PF, 30 mcg/0.3 mL dose 1 completed Not Available [facility] 11/11/2024 14:18:01 COVID-19, mRNA, LNP-S, PF, 30 mcg/0.3 mL dose 1 completed Not Available [facility] 11/11/2024 14:18:01 Influenza, recombinant, quadrivalent, PF 1 completed Not Available [facility] 11/11/2024 14:18:01 COVID-19, mRNA, LNP-S, PF, 30 mcg/0.3 mL dose, salvador-sucrose 2 completed Not Available [facility] 11/11/2024 14:18:01 COVID-19, mRNA, LNP-S, bivalent, PF, 30 mcg/0.3 mL dose 2 completed Not Available [facility] 11/11/2024 14:18:01 Influenza, split virus, quadrivalent, preservative 2 completed Not Available [facility] 11/11/2024 14:18:01 RSV, recombinant, protein subunit RSVpreF, adjuvant reconstituted, 0.5 mL, PF 3 completed Not Available [facility] 11/11/2024 14:18:01 Influenza, split virus, quadrivalent, PF 3 completed Not Available [facility] 11/11/2024 14:18:01 COVID-19, mRNA, LNP-S, PF, salvador-sucrose, 30 mcg/0.3 mL 3 completed Not Available [facility] 11/11/2024 14:18:01 Td (adult), 2 Lf tetanus toxoid, preservative free, adsorbed 4 completed Not Available [facility] 11/11/2024 14:18:01 COVID-19, subunit, rS-nanoparticle, adjuvanted, PF, 5 mcg/0.5 mL 4 completed Not Available [facility] 11/11/2024 14:18:01 Influenza, split virus, trivalent, PF 4 completed Not Available [facility] 11/11/2024 14:18:01 Past Encounters Encounter ID Performer Location Encounter Start Date Encounter Closed Date Diagnosis/Indication Diagnosis SNOMED-CT Code Diagnosis ICD10 Code Diagnosis Note [id number] Leland Maya PA-C [facility] [address] [facility],[address] [phone] 11/11/2024 14:15:38 11/11/2024 14:45:22 Hemospermia 44462375 R36.1 Health Concerns Section Related Observation LastModified by Organization Detai ls LastModified Time None Recorded Concern Status LastModified by Organization Details LastModified Time None Recorded Advance Directives Directive N: Payers Insurance Date Sequence Insurance Name Policy Number Policy James Covered Member ID James Member ID Guarantor Name 11/06/2024 1 [place] [id number] Estrella Daniel Fournier [id number] Dheeraj Fournier Notes Date Note Type [...] history of prostate cancer Leland Maya PA-C [address] [place] [address],[address], [place], [address], [facility] [place] [facility] 11/11/2024 14:45:18
--- OUTSIDE RECORDS SUMMARY | 2024-11-14 00:35 | XMS_ITS | Referral Summary ---
Author Organization [facility] Address [address] [place] [address] Care Team Providers Care Marketing And Promotions Manager Name Role Phone Tony Olea MD Primary Care Provider + Sandor Molina MD Unavailable [phone] Encounters Date Type Department Care Team Description 09/25/2024 1:30 PM CDT Office Visit [facility] - [address] [place] [address] Zahra Wick, BOARD OF EDUCATION SECRETARY, INFORMATICS SPEC Severe carpal tunnel syndrome of right wrist (Primary Dx); Lumbar radiculopathy; Multiple sclerosis (HCC) from Last 3 Months Allergies Active Allergy Reactions Criticality Noted Date [...] episode, unspe cified 05/01/2019 Multiple sclerosis 05/01/2019 Immunizations Immunization Administration Dates Next Due Influenza [...] 09/15/2021 1:40 PM CDT Plan of Treatment Not on file Insurance BCBS OUT OF STATE COMMERCIAL Care Teams Marketing And Promotions Manager Relationship Specialty Start Date End Date Tony Olea MD [address] [place] [address] PCP - General 09/13/21 Sandor Molina MD [address] [facility] [address] [place] [address] Neurology 09/13/21
== END 2024-11-13 13:44 | disposition home or self-care (01) ==
LOC: CT 13:44
PROVIDERS: PCP Family Medicine; Visit Provider Family Medicine
DX: Z12.2 Encounter for screening for malignant neoplasm of respiratory organs (principal); R91.8 Other nonspecific abnormal finding of lung field; Z87.891 Personal history of nicotine dependence
CPT/HCPCS: 71271